=== PATIENT | male | born 1985 | race Caucasian/White ===

== ENCOUNTER 2016-10-17 19:43 | Emergency (ER) | payer OTHER ==
[~2016-10-17] VITALS: Ht 175.3 cm; Wt 95.5 kg
[~2016-10-17 19:43] MED LIST: BACT800T5 PO; CEPH500 PO; CEPH500C3 PO; SULF-154 PO
[2016-10-17 19:45] VITALS: BP 146/93; PULSE 71; RESP 16; TEMP 98.9; O2SAT 99
[2016-10-17] MEDS ORDERED: PENI500T PO (20:58)
[2016-10-17] MEDS ORDERED: IBUP800T23 PO (20:58)
--- NOTE | 2016-10-17 21:01 | PD ---
HPI Chief Complaint: Oral / Dental Pain or Problem Time Seen by Provider: 20:52 Travel History International Travel<30 days: No Contact w/Intl Traveler<30days: No Traveled to known affect area: No History of Present Illness HPI 30-year-old male presents for evaluation of dental pain. Symptom onset 2 days ago. Pain is a throbbing pain localized to the right maxillary molars and the surrounding gumline. Pain is worse with chewing. Denies any dental trauma. He has not tried using any [id number] medication for symptom relief. No fevers or chills. No other complaints at this time. PFSH Past Medical History Medical History: Denies Significant Hx Past Surgical History Surgical History: No Previous Surgery Social History Alcohol Use: No Tobacco Use: No Substance Use: No Allergies-Medications (Allergen,Severity, Reaction): Coded Allergies: No Known Allergies (Unverified , 10/17/16) Reported Meds & Prescriptions Reported Meds & Active Scripts Active Ibuprofen 800 Mg Tab 800 Mg PO Q6HR PRN Penicillin V Potassium 500 Mg Tab 500 Mg PO Q8H 10 Days Review of Systems General / Constitutional: No: Fever HENT: Positive: Dental Difficulties Physical Exam Narrative GENERAL: Well-nourished male in no acute distress SKIN: Warm and dry. HEAD: Atraumatic. Normocephalic. EYES: Pupils equal and round. No scleral icterus. No injection or drainage. ENT: No nasal bleeding or discharge. Mucous membranes pink and moist. There is tenderness to palpation to the right maxillary gumline, some dental decay noted to the right maxillary premolars. There is no trismus or facial edema. NECK: Trachea midline. No JVD. No lymphadenopathy, no submandibular edema Data Data Last Documented VS Vital Signs Date Time Temp Pulse Resp B/P Pulse Ox O2 Delivery O2 Flow Rate FiO2 10/17/16 19:45 98.9 71 16 146/93 99 MDM Medical Decision Making Medical Screen Exam Complete: Yes Emergency Medical Condition: Yes Medical Record Reviewed: Yes Differential Diagnosis Dental caries, pulpitis, pericoronitis, periodontal abscess Narrative Course The patient is being discharged with a short course of penicillin and ibuprofen , recommend outpatient follow-up with a dentist. Diagnosis Primary Impression: Dentalgia Additional Instructions: Medication as prescribed. Follow up with a dentist. Return for any emergent medical conditions. Med/Other Pt SpecificInfo: Prescription(s) given Scripts Ibuprofen 800 Mg [id number] Mg PO Q6HR PRN (PAIN) #40 TAB Ref 0 Prov:Elvin Lanza MD 10/17/16 Penicillin V Potassium 500 Mg [id number] Mg PO Q8H 10 Days Ref 0 Prov:Elvin Lanza MD 10/17/16 Disposition: 01 DISCHARGE HOME Condition: Stable Nolan Flores Oct 17, 2016 21:01
== END 2016-10-17 21:38 | disposition home or self-care (01) ==
LOC: NEPK 19:43
DX: K08.89 Other specified disorders of teeth and supporting structures (principal)
CPT/HCPCS: 99282